=== PATIENT | female | born 1985 | race Caucasian/White ===

== ENCOUNTER 2021-05-07 12:26 | Emergency (ER) | payer OTHER ==
[~2021-05-07] VITALS: Ht 152.4 cm; Wt 43.1 kg
[~2021-05-07 12:26] MED LIST: ALBUTEROL INHAL17 GM IH; FLEXERIL PO; NORCO 7.5-3251 EACH PO; PRENATAL PO; ZOFRAN ODT4 MG PO; ZYRTEC; [UNRECOGNIZED DRUG - REMARK]
[2021-05-07 12:44] LABS: ABSOLUTE NEUTROPHILS 3.4 thou/uL (1.4-8.2); BASOPHILS 0.7 % (0.0-2.0); EOSINOPHILS 1.6 % (0.0-3.0); HEMATOCRIT 38.1 % (37.0-47.0); HEMOGLOBIN 12.5 gm/dL (12.0-15.0); MCH 29.7 pg (26.0-34.0); MCHC 32.7 g/dL (28.0-37.0); MCV 90.9 fL (80.0-100.0); MONOCYTES 7.1 % (1.0-8.0); PLATELET COUNT 224 thou/uL (150-400); POLYS 74.6 % (36.0-66.0); RBC 4.19 mil/uL (4.20-5.00); RDW 14.3 % (10.5-14.5); WBC 4.6 thou/uL (4.0-11.0)
[2021-05-07 12:52] LABS: CALCIUM 9.2 mg/dL (8.5-10.1); CREATININE 0.6 mg/dL (0.6-1.0); POTASSIUM 3.8 mmol/L (3.5-5.1)
[2021-05-07 12:57] LABS: TOTAL BILIRUBIN 0.2 mg/dL (0.2-1.0); TOTAL PROTEIN 7.4 g/dL (6.4-8.2)
[2021-05-07 12:57] LABS: URINE BILIRUBIN NEGATIVE (Negative); URINE BLOOD 2+ (Negative); URINE CLARITY CLEAR; URINE COLOR YELLOW; URINE GLUCOSE-RANDOM* TRACE (Negative); URINE KETONES NEGATIVE (Negative); URINE LEUKOCYTES-REFLEX NEGATIVE (Negative); URINE NITRITE-REFLEX NEGATIVE (Negative); URINE PROTEIN (DIPSTICK) NEGATIVE (Negative); URINE SPECIFIC GRAVITY <= 1.005 (1.005-1.035); URINE UROBILINOGEN 0.2 E.U./dl (0.2-1.0)
[2021-05-07 13:07] LABS: SQUAMOUS 0-3 Few /LPF (0-3)
[2021-05-07 13:08] LABS: BACTERIA-REFLEX None Seen /HPF (None Seen); CASTS None Seen /LPF (None Seen); CRYSTALS None Seen /LPF (None Seen); URINE RBC 1-2 Rare /HPF (NONE SEEN); URINE WBC-REFLEX None Seen /HPF (0-5)
[2021-05-07] MEDS ORDERED: TORADOL 10 MG T10 MG PO (15:59)
[2021-05-07] MEDS ORDERED: ONDANSETRON HCL4 M2 PO (15:59)
[2021-05-07 16:10] VITALS: BP 101/46
== END 2021-05-07 16:11 | disposition home or self-care (01) ==
LOC: ER 12:26
PROVIDERS: Physician Assistant
DX: R10.2 Pelvic and perineal pain (principal); J45.909 Unspecified asthma, uncomplicated; F32.9 Major depressive disorder, single episode, unspecified; Z90.79 Acquired absence of other genital organ(s); Z79.899 Other long term (current) drug therapy; Z79.51 Long term (current) use of inhaled steroids; Z88.6 Allergy status to analgesic agent